=== PATIENT | male | born 2000 | race Caucasian/White ===

== ENCOUNTER 2024-10-16 12:57 | Emergency (ER) | payer BC, OTHER, SELFPAY ==
[~2024-10-16] VITALS: Ht 175.3 cm; Wt 54.7 kg
[~2024-10-16 12:57] MED LIST: ALBUTEROL INH; BACTROBAN; SING10TA31 OR; TYLENOL ELIXIR PO; XOPENEX INH
[2024-10-16 12:59] VITALS: BP 122/72; TEMP 97.9; O2SAT 99
[2024-10-16] MEDS ORDERED: IBUP200C25 PO (13:07)
[2024-10-16 14:13] LABS: BASO % 0.2 % (0.0-1.0); EOS % 0.2 % (0.0-3.0); HEMOGLOBIN 16.3 g/dl (13.5-17.5); LYMPH # 0.9 10^3/uL (1.5-5.0); MEAN CORPUSCULAR HEMOGLOBIN 30.9 pg (27.0-33.0); MEAN CORPUSCULAR HGB CONC 35.4 g/dl (32.0-36.5); MEAN CORPUSCULAR VOLUME 87.1 fl (80.0-96.0); MONO # 0.7 10^3/uL (0.0-0.8); MONO % 5.2 % (2.0-8.0); NEUTROPHILS # 10.8 10^3/uL (1.5-8.5); NEUTROPHILS % 87.1 % (36.0-66.0); PLATELET COUNT, AUTOMATED 183 10^3/uL (150-450); RED BLOOD COUNT 5.28 10^6/uL (4.30-6.10); WHITE BLOOD COUNT 12.5 10^3/uL (4.0-10.0)
[2024-10-16 14:45] LABS: BLOOD UREA NITROGEN 16 MG/DL (9-23); CALCIUM LEVEL 9.7 MG/DL (8.5-10.1); CARBON DIOXIDE LEVEL 21 MMOL/L (20-31); CHLORIDE LEVEL 110 MMOL/L (98-107); CK-MB VALUE MASS < 1.0 NG/ML (<3.6); CPK CREATINE PHOSPHOKINASE 61 U/L (46-171); CREATININE FOR GFR 0.79 MG/DL (0.70-1.30); GLOMERULAR FILTRATION RATE > 60.0 (>60); GLUCOSE, FASTING 104 MG/DL (60-100); MB/CK RELATIVE INDEX 1.63 (< OR =4); POTASSIUM SERUM 4.1 MMOL/L (3.5-5.1); SODIUM LEVEL 142 MMOL/L (136-145)
[2024-10-16] MEDS ORDERED: IBUP-1022 PO (15:03)
== END 2024-10-16 15:13 | disposition home or self-care (01) ==
LOC: M ED 12:57
DX: R07.89 Other chest pain (principal); S22.23XA Sternal manubrial dissociation, initial encounter for closed fracture; X50.0XXA Overexertion from strenuous movement or load, initial encounter; R00.0 Tachycardia, unspecified; I51.7 Cardiomegaly; I44.5 Left posterior fascicular block; J45.909 Unspecified asthma, uncomplicated; Z79.1 Long term (current) use of non-steroidal anti-inflammatories (NSAID); Z79.899 Other long term (current) drug therapy; Y92.9 Unspecified place or not applicable; Y93.89 Activity, other specified; Y99.9 Unspecified external cause status